=== PATIENT | female | born 1960 | race American Indian/Alaskan Native ===

== ENCOUNTER 2021-10-29 14:27 | Outpatient (CLI) | payer MEDICARE ==
[2021-10-29 15:40] LABS: Bacteria,Urine 1+ /HPF (Negative); Bilirubin,Urine NEG (Negative); Blood,Urine NEG (Negative); Color,Urine Yellow (Yellow); Mucus,Urine FEW /HPF; Urobilinogen,Urine < 2.0 mg/dL (<2.0)
[2021-10-29 15:41] LABS: Albumin 4.2 g/dL (3.9-5); BUN/Creatinine Ratio 20; Blood Urea Nitrogen 22 mg/dL (7-17); Hemolysis Index 2
[2021-10-29 17:02] LABS: Creatinine,Urine 220.7 mg/dL (0.1-20.0); Protein/Creatinine Ratio,Urine 0.15
[2021-11-01 10:22] LABS: Myeloperoxidase Antibody <1.0 AI (<1.0)
[2021-11-01 21:08] LABS: ANA Screen, IFA Positive (Negative)
== END 2021-10-29 14:28 | disposition home or self-care (01) ==
LOC: LAB 14:27
PROVIDERS: ATTEND Internal Medicine Nephrology
DX: I10 Essential (primary) hypertension (principal); R35.1 Nocturia; R94.4 Abnormal results of kidney function studies; E87.6 Hypokalemia; B19.20 Unspecified viral hepatitis C without hepatic coma; R60.9 Edema, unspecified; R31.21 Asymptomatic microscopic hematuria; Z72.0 Tobacco use
CPT/HCPCS: 36415; 80048; 81001; 82040; 82570; 84100; 84156; 86021; 86038; 86160; 86706; 86803

== ENCOUNTER 2022-05-01 16:11 | Emergency (ER) | payer MEDICARE ==
--- NOTE | 2022-05-01 17:08 | Event Note ---
ED Screening Note ED Screening Note: EPIGASTRIC PAIN TO CHEST HOARSE- HX SPASM NAUSEA This initial assessment/diagnostic orders/clinical plan/treatment(s) is/are subject to change based on patients health status, clinical progression and re- assessment by fellow clinical providers in the ED. Further treatment and workup at subsequent clinical providers discretion. Patient/guardian urged not to elope from the ED as their condition may be serious if not clinically assessed and managed. Initial orders include: RO ACS/GERD/CHOLEYS/
--- NOTE | 2022-05-01 18:18 | XRay Report ---
CHEST 2 VIEWS INDICATION / CLINICAL INFORMATION: Chest Pain. COMPARISON: None available. FINDINGS: SUPPORT DEVICES: None. HEART / MEDIASTINUM: No significant abnormality. LUNGS / PLEURA: No significant pulmonary or pleural abnormality. No pneumothorax. ADDITIONAL FINDINGS: No significant additional findings. IMPRESSION: 1. No acute findings. Signer Name: Yung Cowart MD Signed: 05/01/2022 6:14 PM Workstation Name: [id number]
[2022-05-01 19:23] LABS: Alanine Aminotransferase 208 units/L (7-56); Albumin 4.4 g/dL (3.9-5); BUN/Creatinine Ratio 15; Blood Urea Nitrogen 15 mg/dL (7-17); Calcium 9.5 mg/dL (8.4-10.2); Hemolysis Index 2
[2022-05-01 19:48] LABS: Basophils % (Auto) 0.2 % (0.0-1.8); Eosinophils # (Auto) 0.1 K/mm3 (0.0-0.4); Eosinophils % (Auto) 1.6 % (0.0-4.3); Hematocrit 39.2 % (30.3-42.9); Hemoglobin 13.1 gm/dl (10.1-14.3); Lymphocytes # (Auto) 1.4 K/mm3 (1.2-5.4); Lymphocytes % (Auto) 19.3 % (13.4-35.0); Mean Corpuscular HGB Conc 33 % (30-34); Mean Corpuscular Volume 95 fl (79-97); Monocytes # (Auto) 0.6 K/mm3 (0.0-0.8); Platelet Count 224 K/mm3 (140-440); Red Blood Count 4.15 M/mm3 (3.65-5.03); Red Cell Distribution Width 13.7 % (13.2-15.2)
[2022-05-01] MEDS ORDERED: SODIUM CHLORIDE 0.9% 1000 ML 1,000 ML IV ONE (22:32)
[2022-05-01] MEDS ORDERED: POTASSIUM CHLORIDE ER 20 MEQ TAB PO ONE (22:33)
[2022-05-01] MEDS ORDERED: ONDANSETRON 4 MG/2 ML INJ IV ONE (22:33)
[2022-05-01] MEDS ORDERED: MORPHINE 4 MG/1 ML INJ IV ONE (22:38)
--- NOTE | 2022-05-01 22:43 | Emergency Department Report ---
ED Abdominal Pain HPI - General Chief Complaint: Abdominal Pain Stated Complaint: SEVERE STOMACH PAIN Time Seen by Provider: 05/01/22 17:07 Source: patient Mode of arrival: Ambulatory Limitations: No Limitations - History of Present Illness Initial Comments: Is a 61-year-old female with history of hypertension and HIV positive, hep a C, not sure of other per patient. Patient presents for epigastric and right upper quadrant pain 8/10 for the past 3 days. Patient states decreased appetite. Patient denies vomiting however. Patient denies fevers or chills. Patient is followed by Dr. Gonzalez ID, patient states decreased bowel movements. 8/10 pain is exacerbated by movement and palpation. States abdomen is distended and firm. Patient denies substance, patient denies EtOH, patient denies smoking, no shortness of breath there is no dizziness or lightheadedness. Patient denies history of diverticulitis Crohn's, or pancreatitis. MD Complaint: abdominal pain Severity scale (0 -10): 9 - Related Data Previous Rx's Medication Instructions Recorded Last Taken Type HYDROcodone/APAP 5-325 [[place] 1 each PO Q6HR PRN #15 tablet 01/15/16 Unknown Rx 5/325] Ciprofloxacin HCl 500 mg PO BID 7 Days #14 tab 05/02/22 Unknown Rx Omeprazole 40 mg PO DAILY #30 tab 05/02/22 Unknown Rx metroNIDAZOLE [Flagyl] 500 mg PO Q8HR 7 Days #21 tablet 05/02/22 Unknown Rx traMADoL [Ultram] 50 mg PO Q6HR PRN #12 tablet 05/02/22 Unknown Rx Allergies Allergy/AdvReac Type Severity Reaction Status Date / Time No Known Allergies Allergy Verified 01/15/16 19:23 ED Review of Systems ROS: Stated complaint: SEVERE STOMACH PAIN Other details as noted in HPI Constitutional: denies: chills, fever Eyes: denies: eye pain, eye discharge, vision change ENT: denies: ear pain, throat pain Respiratory: denies: cough, shortness of breath, wheezing Cardiovascular: denies: chest pain, palpitations Endocrine: no symptoms reported Gastrointestinal: abdominal pain, nausea, constipation. denies: diarrhea, hematemesis, melena, hematochezia Genitourinary: denies: urgency, dysuria, discharge Musculoskeletal: back pain Skin: denies: rash, lesions Neurological: denies: headache, weakness, paresthesias, vertigo Psychiatric: denies: anxiety, depression Hematological/Lymphatic: as per HPI ED Past Medical Hx - Past Medical History Hx Hypertension: Yes Hx HIV: Yes Additional medical history: low potassium, spasmotic dysfonia-vocal cords - Surgical History Additional Surgical History: left hip replacement - Social History Smoking Status: Never Smoker Substance Use Type: None - Medications Home Medications: Home Medications Medication Instructions Recorded Confirmed Last Taken Type HYDROcodone/APAP 5-325 [[place] 1 each PO Q6HR PRN #15 tablet 01/15/16 Unknown Rx 5/325] Ciprofloxacin HCl 500 mg PO BID 7 Days #14 tab 05/02/22 Unknown Rx Omeprazole 40 mg PO DAILY #30 tab 05/02/22 Unknown Rx metroNIDAZOLE [Flagyl] 500 mg PO Q8HR 7 Days #21 tablet 05/02/22 Unknown Rx traMADoL [Ultram] 50 mg PO Q6HR PRN #12 tablet 05/02/22 Unknown Rx ED Physical Exam - General Limitations: No Limitations General appearance: alert, in no apparent distress - Head Head exam: Present: normocephalic, normal inspection - Eye Eye exam: Present: EOMI Pupils: Present: normal accommodation - ENT ENT exam: Present: normal orophraynx, mucous membranes moist - Neck Neck exam: Present: normal inspection, full ROM. Absent: tenderness, lymphadenopathy - Respiratory Respiratory exam: Present: normal lung sounds bilaterally. Absent: respiratory distress, wheezes, chest wall tenderness - Cardiovascular Cardiovascular Exam: Present: regular rate, normal rhythm, normal heart sounds. Absent: systolic murmur, diastolic murmur, rubs, gallop - GI/Abdominal GI/Abdominal exam: Present: distended, tenderness (Firm), guarding ( right upper quadrant), hyperactive bowel sounds. Absent: rebound, rigid (Mild), bruit, hernia - Expanded GI/Abdominal Exam Expanded GI/Abdominal exam: Present: Chapa's sign. Absent: psoas sign, obturator sign, heel tap sign, Rovsing's sign, tenderness at [place], ascites - Rectal Rectal exam: Present: deferred - Extremities Exam Extremities exam: Present: normal inspection, full ROM, normal capillary refill. Absent: tenderness - Back Exam Back exam: Present: normal inspection, full ROM. Absent: CVA tenderness (R), CVA tenderness (L) - Neurological Exam Neurological exam: Present: alert, oriented X3, CN II-XII intact - Expanded Neurological Exam Expanded Patient oriented to: Present: person, place, time Speech: Present: fluid speech Motor strength exam: RUE: 5, LUE: 5, RLE: 5, LLE: 5 Best Eye Response ([place]): (4) open spontaneously Best Motor Response ([place]): (6) obeys commands Best Verbal Response ([place]): (5) oriented [place] Total: 15 - Psychiatric Psychiatric exam: Present: normal affect, normal mood - Skin Skin exam: Present: warm, dry, intact, normal color. Absent: rash ED Course Vital Signs 05/01/22 05/02/22 17:03 00:20 Temperature 98.4 F Pulse Rate 62 Respiratory 22 22 Rate Blood Pressure 182/101 [Right] O2 Sat by Pulse 98 Oximetry ED Medical Decision Making - Lab Data Result diagrams: 05/01/22 18:19 05/01/22 18:19 Labs 05/01/22 05/01/22 05/01/22 01:40 18:19 18:19 WBC 7.4 RBC 4.15 Hgb 13.1 Hct 39.2 MCV 95 MCH 32 MCHC 33 RDW 13.7 Plt Count 224 Lymph % (Auto) 19.3 [place] % (Auto) 8.0 H Eos % (Auto) 1.6 Baso % (Auto) 0.2 Lymph # (Auto) 1.4 [place] # (Auto) 0.6 Eos # (Auto) 0.1 Baso # (Auto) 0.0 Seg Neutrophils % 70.9 H Seg Neutrophils # 5.3 Sodium 141 Potassium 2.7 L* Chloride 99.9 Carbon Dioxide 27 Anion Gap 17 BUN 15 Creatinine 1.0 Estimated GFR > 60 BUN/Creatinine Ratio 15 Glucose 102 H Calcium 9.5 Total Bilirubin 5.60 H AST 204 H ALT 208 H Alkaline Phosphatase 119 Troponin T 0.017 Total Protein 8.0 Albumin 4.4 Albumin/Globulin Ratio 1.2 Lipase 13 Urine Color Yellow Urine Turbidity Clear Urine pH 7.5 H Ur Specific [place] 1.005 Urine Protein <30 mg dl Urine Glucose (UA) Negative Urine Ketones Negative Urine Blood Trace Urine Nitrite Negative Ur Reducing Substances Not Reportable Urine Bilirubin Moderate Urine Ictotest Positive Urine Urobilinogen 2.0 Ur Leukocyte Esterase Negative Urine WBC (Auto) 1.0 Urine RBC (Auto) 6.0 U Epithel Cells (Auto) 4.0 05/01/22 23:09 WBC RBC Hgb Hct MCV MCH MCHC RDW Plt Count Lymph % (Auto) [place] % (Auto) Eos % (Auto) Baso % (Auto) Lymph # (Auto) [place] # (Auto) Eos # (Auto) Baso # (Auto) Seg Neutrophils % Seg Neutrophils # Sodium Potassium Chloride Carbon Dioxide Anion Gap BUN Creatinine Estimated GFR BUN/Creatinine Ratio Glucose Calcium Total Bilirubin AST ALT Alkaline Phosphatase Troponin T 0.020 Total Protein Albumin Albumin/Globulin Ratio Lipase Urine Color Urine Turbidity Urine pH Ur Specific [place] Urine Protein Urine Glucose (UA) Urine Ketones Urine Blood Urine Nitrite Ur Reducing Substances Urine Bilirubin Urine Ictotest Urine Urobilinogen Ur Leukocyte Esterase Urine WBC (Auto) Urine RBC (Auto) U Epithel Cells (Auto) - EKG Data EKG shows normal: sinus rhythm Rate: normal - EKG Data Interpretation: LVH, other (Sinus rhythm inverted T waves LVH premature atrial contractions no ST elevated NM interpreted by ED attending) - Radiology Data Radiology results: report reviewed, image reviewed CHEST 2 VIEWS INDICATION / CLINICAL INFORMATION: Chest Pain. COMPARISON: None available. FINDINGS: SUPPORT DEVICES: None. HEART / MEDIASTINUM: No significant abnormality. LUNGS / PLEURA: No significant pulmonary or pleural abnormality. No pneumothorax. ADDITIONAL FINDINGS: No significant additional findings. IMPRESSION: 1. No acute findings. Signer Name: Yung Cowart MD Signed: 05/01/2022 6:14 PM Workstation Name: [id number] Transcribed By: DT Dictated By: Theodore Cowart MD Electronically Authenticated By: Theodore Cowart MD Signed Date/Time: 05/01/221813 DD/ 13 TD/TT: Print CT abdomen pelvis w con INDICATION / CLINICAL INFORMATION: Epigastric and R.U.Q. abdominal pain. TECHNIQUE: Axial CT images were obtained through the abdomen and pelvis after 100 cc of Omnipaque [address] scans at this location are performed using CT dose reduction for ALARA by means of automated exposure control. COMPARISON: None available. FINDINGS: LOWER CHEST: Cardiac enlargement. No pericardial effusion. Atelectasis/scarring left lung base. No acute airspace disease in the lung bases. LIVER: Liver is mildly enlarged, measuring 17.5 cm. There is diffuse hyp oattenuation of the liver, suspect steatosis. No focal hepatic lesion. GALLBLADDER/BILIARY TREE: Gallbladder is markedly distended, measuring 12.7 cm. No significant wall thickening. No cholelithiasis by CT. Extensive intrahepatic and extrahepatic biliary dilatation. The common bile duct is dilated up to 1.7 cm. This extends to the ampulla without discrete obstructing stone or mass. PANCREAS: Pancreatic duct is mildly dilated. No evidence of acute inflammation. No discrete pancreatic mass. SPLEEN: No significant abnormality ADRENALS: No significant abnormality RIGHT KIDNEY / URETER: Small right renal cyst. No acute findings. LEFT KIDNEY / URETER: No significant abnormality URINARY BLADDER: Bladder is partially decompressed, though grossly unremarkable. REPRODUCTIVE ORGANS: No significant abnormality STOMACH / BOWEL: No evidence of localized bowel inflammation or obstruction. The appendix is normal. LYMPH NODES: Mildly enlarged periaortic lymph nodes measuring up to 1.0 cm in short axis, nonspecific. VASCULATURE: No significant abnormality. OTHER: 3.4 cm fluid density structure along the left iliacus muscle, may reflect fluid distention of the iliopsoas bursa. No free air, free fluid or focal fluid collection. SKELETAL SYSTEM: Degenerative changes of the spine, greatest at L5-S1. No acute osseous findings. Left hip arthroplasty is intact with streak artifact, partially obscuring portions of the pelvis. No aggressive cortical destruction. IMPRESSION: 1. Marked distention of the gallbladder and extensive intrahepatic and extrahepatic biliary dilatation and mild pancreatic duct dilatation. The common bile duct is dilated to the ampulla without discrete obstructing stone or mass identified. Recommend correlation with EUS/ERCP or MRCP. 2. No other acute findings. 3. Fluid density structure along the left iliacus muscle, may reflect fluid in the iliopsoas bursa. 4. Other chronic and incidental findings as above. Signer Name: Henry Anderson MD Signed: 05/02/2022 1:17 AM Workstation Name: [id number] Transcribed By: CHARAN Dictated By: HENRY ANDERSON MD Electronically Authenticated By: HENRY ANDERSON MD Signed Date/Time: 05/02/22116 DD/ 6 TD/TT: US abdomen limited INDICATION / CLINICAL INFORMATION: abd pain RUQ r/o cholecystitis. COMPARISON: CT from 05/01/2022 FINDINGS: PANCREAS: No significant abnormality. ABDOMINAL AORTA: No significant abnormality. IVC: No significant abnormality. LIVER: No significant abnormality. PORTAL VEIN: Normal hepatopedal blood flow in the main portal vein. GALLBLADDER: Gallbladder is distended with stones. There is borderline gallbladder wall thickening measuring 3 mm. No significant pericholecystic fluid detected. BILE DUCTS: Bile duct is dilated, measuring 8 mm on ultrasound, though this measured 1.[address] No discrete obstructing stone or mass. Intrahepatic bile ducts are dilated, better appreciated on recent CT. RIGHT KIDNEY: Mild pelviectasis without daniel hydronephrosis. FREE FLUID: None. ADDITIONAL FINDINGS: None. IMPRESSION: 1. Distended gallbladder with stones with borderline thickening of the gallbladder wall. Findings are equivocal for acute cholecystitis. Recommend further evaluation with HIDA scan. 2. Intrahepatic and extra hepatic biliary dilatation redemonstrated. No discrete obstructing stone or mass identified. Signer Name: Henry Anderson MD Signed: 05/02/2022 6:10 AM Workstation Name: [id number] Transcribed By: CHARAN Dictated By: HENRY ANDERSON MD Electronically Authenticated By: HENRY ANDERSON MD Signed Date/Time: 05/02/22609 DD/ 5 TD/TT: - Medical Decision Making Discussed case with ED attending recommendation gallbladder ultrasound admit for cholecystitis , consult GI for possible ERCP. Errol same with patient patient declines to discuss ERCP or admission. Patient demonstrates sound decision- making capacity , patient is alert oriented x3, states pain is improved to 2/10 at this time. Pt is tolerating p.o. intake, and that she cannot be admitted. Patient had the opportunity to ask and have answered all questions to her satisfaction. This includes leaving AGAINST MEDICAL ADVICE, the fact that she immunocompromised, the cholecystitis diagnosis and risk of leaving AGAINST MEDICAL ADVICE including worsening condition and possible . Patient directed to follow-up with infectious disease Dr. Gonzalez as soon as possible, follow-up with gastroenterology as soon as possible, return to emergency if symptoms worsen, fever or chills, or unable to tolerate food by mouth. Vital signs noted improved at this time., Patient is alert oriented x3 she is ambulatory amatory with steady gait and with no acute distress. Patient advised that she will have to sign out AGAINST MEDICAL ADVICE at this time. Critical care attestation.: If time is entered above; I have spent that time in minutes in the direct care of this critically ill patient, excluding procedure time. ED Disposition Clinical Impression: Cholecystitis Disposition: 07 LEFT AGAINST MEDICAL ADVICE Is pt being admited?: No Does the pt Need Aspirin: No Condition: Undetermined Instructions: Abdominal Pain (ED), Cholecystitis, [id number], Gallbladder Eating Plan Additional Instructions: You are leaving AGAINST MEDICAL ADVICE I will have discussed with you the fact that you are immunocompromised, the cholecystitis diagnosis and risk of leaving AGAINST MEDICAL ADVICE including worsening condition and possible . Follow-up with Dr. Gonzalez as soon as possible, follow-up with gastroenterology as soon as possible, return to emergency if symptoms worsen, fever or chills, or unable to tolerate food by mouth. Prescriptions: Ciprofloxacin HCl 500 mg PO BID 7 Days #14 tab metroNIDAZOLE [Flagyl] 500 mg PO Q8HR 7 Days #21 tablet Omeprazole 40 mg PO DAILY #30 tab traMADoL [Ultram] 50 mg PO Q6HR PRN #12 tablet PRN Reason: Pain Referrals: GREGORIO GONZALEZ MD [Staff Physician] - EMILIA JASMEET FONTANEZ MD [Staff Physician] - EMILIA Forms: AMA Form Time of Disposition: 06:47
--- NOTE | 2022-05-02 01:21 | Cat Scan Report ---
CT abdomen pelvis w con INDICATION / CLINICAL INFORMATION: Epigastric and R.U.Q. abdominal pain. TECHNIQUE: Axial CT images were obtained through the abdomen and pelvis after 100 cc of Omnipaque [address] scans at this location are performed using CT dose reduction for ALARA by means of automated exposure control. COMPARISON: None available. FINDINGS: LOWER CHEST: Cardiac enlargement. No pericardial effusion. Atelectasis/scarring left lung base. No ac [place] airspace disease in the lung bases. LIVER: Liver is mildly enlarged, measuring 17.5 cm. There is diffuse hypoattenuation of the liver, [place] spect steatosis. No focal hepatic lesion. GALLBLADDER/BILIARY TREE: Gallbladder is markedly distended, measuring 12.7 cm. No significant wall t hickening. No cholelithiasis by CT. Extensive intrahepatic and extrahepatic biliary dilatation. The c ommon bile duct is dilated up to 1.7 cm. This extends to the ampulla without discrete obstructing sto ne or mass. PANCREAS: Pancreatic duct is mildly dilated. No evidence of acute inflammation. No discrete pancreati c mass. SPLEEN: No significant abnormality ADRENALS: No significant abnormality RIGHT KIDNEY / URETER: Small right renal cyst. No acute findings. LEFT KIDNEY / URETER: No significant abnormality URINARY BLADDER: Bladder is partially decompressed, though grossly unremarkable. REPRODUCTIVE ORGANS: No significant abnormality STOMACH / BOWEL: No evidence of localized bowel inflammation or obstruction. The appendix is normal. LYMPH NODES: Mildly enlarged periaortic lymph nodes measuring up to 1.0 cm in short axis, nonspecific . VASCULATURE: No significant abnormality. OTHER: 3.4 cm fluid density structure along the left iliacus muscle, may reflect fluid distention of the iliopsoas bursa. No free air, free fluid or focal fluid collection. SKELETAL SYSTEM: Degenerative changes of the spine, greatest at L5-S1. No acute osseous findings. Lef t hip arthroplasty is intact with streak artifact, partially obscuring portions of the pelvis. No agg ressive cortical destruction. IMPRESSION: 1. Marked distention of the gallbladder and extensive intrahepatic and extrahepatic biliary dilatatio n and mild pancreatic duct dilatation. The common bile duct is dilated to the ampulla without discret e obstructing stone or mass identified. Recommend correlation with EUS/ERCP or MRCP. 2. No other acute findings. 3. Fluid density structure along the left iliacus muscle, may reflect fluid in the iliopsoas bursa. 4. Other chronic and incidental findings as above. Signer Name: Dimas Anderson MD Signed: 05/02/2022 1:17 AM Workstation Name: [id number]
[2022-05-02 01:57] LABS: Bilirubin,Urine Moderate (Negative); Color,Urine Yellow (Yellow)
[2022-05-02 01:58] LABS: Blood,Urine Trace (Negative); PH,Urine 7.5 (5.0-7.0); Protein,Urine <30 mg dL mg/dL (Negative)
[2022-05-02 02:04] LABS: Ictotest,Urine Positive (Negative)
[2022-05-02] MEDS: POTASSIUM CHLORIDE 10 MEQ 10 MEQ/100 ML BAG IV SCH ×4 (02:09→09:23)
[2022-05-02] MEDS ORDERED: SODIUM CHLORIDE 0.9% 1000 ML 1,000 ML ONE (02:10)
[2022-05-02] MEDS ORDERED: PIPERACIL/TAZOBACTA 4.5/NS 100 4.5 GM/100 ML VIAL IV ONE (04:57)
--- NOTE | 2022-05-02 06:14 | Ultrasound Report ---
US abdomen limited INDICATION / CLINICAL INFORMATION: abd pain RUQ r/o cholecystitis. COMPARISON: CT from 05/01/2022 FINDINGS: PANCREAS: No significant abnormality. ABDOMINAL AORTA: No significant abnormality. IVC: No significant abnormality. LIVER: No significant abnormality. PORTAL VEIN: Normal hepatopedal blood flow in the main portal vein. GALLBLADDER: Gallbladder is distended with stones. There is borderline gallbladder wall thickening me asuring 3 mm. No significant pericholecystic fluid detected. BILE DUCTS: Bile duct is dilated, measuring 8 mm on ultrasound, though this measured 1.[address] No discrete obstructing stone or mass. Intrahepatic bile ducts are dilated, better appreciated on recen t CT. RIGHT KIDNEY: Mild pelviectasis without daniel hydronephrosis. FREE FLUID: None. ADDITIONAL FINDINGS: None. IMPRESSION: 1. Distended gallbladder with stones with borderline thickening of the gallbladder wall. Findings are equivocal for acute cholecystitis. Recommend further evaluation with HIDA scan. 2. Intrahepatic and extra hepatic biliary dilatation redemonstrated. No discrete obstructing stone or mass identified. Signer Name: Dimas Anderson MD Signed: 05/02/2022 6:10 AM Workstation Name: [id number]
[2022-05-02 06:54] VITALS: BP 160/92
--- NOTE | 2022-05-03 17:36 | Electrocardiograph Report ---
[facility] Test Date: 2022-05-01 Test Time: 17:55:32 Pat Name: LORRIE REDMOND Department: Room: Gender: F Loose Hand Packer: NURSE : 1960 Requested By: TG PALOMARES Order Number: [id number] Reading MD: Stacey Hightower Measurements Intervals [place] Rate: 57 P: 53 ID: [id number] QRS: -13 QRSD: 90 T: 257 QT: 542 QTc: 527 Interpretive Statements Sinus bradycardia Probable left atrial enlargement Left ventricle hypertrophy with requisition abnormalities of LVH Prolonged QT interval No previous ECG available for comparison Electronically Signed On 05-03-2022 17:36:32 EDT by Stacey Hightower
== END 2022-05-02 09:02 | disposition left against medical advice (07) ==
LOC: ED 16:11
DX: K81.9 Cholecystitis, unspecified (principal); I10 Essential (primary) hypertension; Z21 Asymptomatic human immunodeficiency virus [HIV] infection status; Z98.890 Other specified postprocedural states; E87.6 Hypokalemia
CPT/HCPCS: 36415; 71046; 74177; 76705; 80053; 81001; 83690; 84484; 85025; 93005; 96361; 96365; 96375; 99284; J2270; J2405; J2543; J3480; J7030; Q9967